=== PATIENT | male | born 1985 | race Caucasian/White ===

== ENCOUNTER 2016-12-03 05:58 | Emergency (ER) | payer OTHER ==
[~2016-12-03] VITALS: Ht 175.3 cm; Wt 65.6 kg
[2016-12-03 06:35] LABS: EOSINOPHIL (%) 0.3 % (0-5); IMMATURE GRANULOCYTE (%) 0.4 % (0.0-0.7); INSTRUMENT ABS NEUTROPHIL CT 6.9 K/uL; LYMPHOCYTE COUNT 1.5 K/uL (1.0-2.8); MCH 31.4 PG (29.0-34.0); MCHC 35.4 G/DL (30.0-36.0); MCV 88.7 FL (86-99); MONOCYTE (%) 9.1 % (3-12); MONOCYTE COUNT 0.9 K/uL (0-0.8); NEUTROPHIL COUNT 6.9 K/uL (1.8-6.4); PLATELET COUNT 170 K/uL (156-360); RBC DIS.WIDTH-CV 11.5 % (11.8-14.6); RBC DIS.WIDTH-SD 36.8 % (39-53); RED BLOOD COUNT 4.62 M/uL (4.00-5.50); WHITE BLOOD COUNT 9.3 K/uL (4.1-10.2)
[2016-12-03 06:47] LABS: CHLORIDE 106 mEq/L (99-109); POTASSIUM 3.4 mEq/L (3.7-5.4); SODIUM 141 mEq/L (136-147)
[2016-12-03 06:49] LABS: GLUCOSE 109 mg/dL (70-99)
[2016-12-03 06:50] LABS: ANION GAP 12 MEQ/L (2-14)
[2016-12-03 06:53] LABS: GFR ESTIMATE (CALCULATED) > 59 mL/min/
[2016-12-03 06:54] LABS: UREA NITROGEN (BUN) 15 mg/dL (9-23)
[2016-12-03 07:01] LABS: TROP-I INTERPRETATION NEGATIVE; TROPONIN-I < 0.01 ng/mL (0.0-0.30)
[2016-12-03 09:43] VITALS: BP 115/67
== END 2016-12-03 09:43 | disposition home or self-care (01) ==
LOC: EDBD 05:58 → EME 05:58
PROVIDERS: Emergency Medicine
DX: R00.2 Palpitations (principal)
CPT/HCPCS: 71010; 80048; 84443; 84484; 85025; 85379; 93005; 99281; 99285; J7030